=== PATIENT | male | born 1955 | race African-American/Black ===

== ENCOUNTER 2022-09-21 10:27 | Day surgery (SDC) | payer OTHER ==
[2022-09-17 16:25] VITALS: BMI 29.1
[2022-09-21 12:31] VITALS: RESP 20; TEMP 97
[2022-09-21 13:16] VITALS: BP 110/68; PULSE 66
== END 2022-09-21 13:10 | disposition home or self-care (01) ==
LOC: FASU-ENDO 10:27
PROVIDERS: ATTEND Internal Medicine Gastroenterology
PROC: 0DJD8ZZ Inspection of Lower Intestinal Tract, Via Natural or Artificial Opening Endoscopic (ICD-10-PCS; principal; 2022-09-21 11:57)
DX: Z12.11 Encounter for screening for malignant neoplasm of colon (principal); K57.30 Diverticulosis of large intestine without perforation or abscess without bleeding